=== PATIENT | male | born 2000 | race Caucasian/White ===

== ENCOUNTER 2023-11-15 14:44 | Emergency (ER) | payer OTHER, SELFPAY ==
[2023-11-15 14:48] VITALS: BP 157/99
--- NOTE | 2023-11-15 15:30 | ED.GENMED ---
History of Present Illness
General
Chief Complaint: Musculo-Skeletal Complaint
Source: patient
Time Seen by Provider: 11/15/23 15:04
Travel History
Have you had any contact with someone who has COVID-19?: No
Do you have any symptoms of coronavirus? Fever > 100 degrees, chills, cough, shortness of breath, sore throat, loss of taste or smell, muscle aches, or headache?: No
History of Present Illness
History of Present Illness:
23-year-old male with no significant past medical history presenting emergency department for evaluation after injuring his left shoulder while bench pressing earlier today. Patient states that he is having difficulty with range of motion of his
left shoulder since injuring as well as states he feels that he is not able to fully extend his left arm secondary to the pain. Denies any previous history of injury or surgery although notes that while lifting weights over the last few years he
has often times felt pain over the anterior portion of his deltoid/shoulder but states never had this evaluated. No other injuries or concerns.
Past History
Past History
ED Past Medical History: None
ED Past Surgical History: None
Social History
Tobacco: Non-smoker
Alcohol: Occasional
Drug: None
Personal: Single
Living: with family
Employment: Student
Review of Systems
Review of Systems
All Other Systems: ROS reviewed and negative except as documented in HPI and ROS
Phy Exam
Physical Exam
Physical Exam:
GENERAL: Alert , in no apparent distress
EYE: conjunctiva clear
Head: Normocephalic atraumatic
NECK: Supple,
ENT: mmm.
LUNGS: no acute respiratory distress
NEUROLOGICAL: Alert and oriented
SKIN: Warm and dry, skin intact.
MUSCULOSKELETAL: Left upper extremity: No obvious deformity, erythema, edema, ecchymosis, abrasions or lacerations. There is tenderness over the anterior deltoid as well as down towards the bicipital groove. Range of motion limited secondary to
pain. Easily palpable radial pulse. Cap refill less than 2 seconds and sensation is grossly intact to light touch. Remainder of extremity is within normal limits and without sign of trauma.
PSYCH: Normal and appropriate interaction.
Scores
Heart Failure Risk
Heart Failure Risk Score: Not Applicable
Heart Score for Chest Pain Patients
STEMI patient?: Not applicable
Withdrawal Assessment of Alcohol
Withdrawal Assessment Completed?: Not applicable
Course
Orders/Labs/Results
Orders:
Orders
11/15/23 14:54
Shoulder, Left, Trauma CR [CR Shoulder, Trauma - Left] Urgent
Comment:
Reason For Exam: injury
11/15/23 15:17
Iohexol [Omnipaque] See Protocol PO NOW STA
11/15/23 15:19
Sling Left-Treatment ONCE
11/15/23 15:17
11/15/23 15:17
Vital Signs
Initial and Last Documented VS:
Initial Vital Signs
Temp Pulse Resp BP Pulse Ox
97.6 F 66 16 157/99 98
11/15/23 14:48 11/15/23 14:48 11/15/23 14:48 11/15/23 14:48 11/15/23 14:48
Last Documented Vital Signs
Temp Pulse Resp BP Pulse Ox
97.6 F 66 16 157/99 98
11/15/23 14:48 11/15/23 14:48 11/15/23 14:48 11/15/23 14:48 11/15/23 14:48
MDM/Problems Addressed
Differential Diagnosis Includes:
Rotator cuff injury, biceps tendon injury, dislocation, deltoid injury, less concern for fracture
MDM/Problems Addressed:
23-year-old male present emergency department for evaluation of left shoulder injury while bench pressing. Based off the mechanism I do have less concern for biceps injury however patient is fairly tender over the bicipital groove and anterior
deltoid. X-ray had been ordered from triage which was negative for any fracture or dislocation. Will place in a sling. Suspect muscular versus tendon injury. Information for orthopedics provided. Continue NSAIDs/Tylenol as needed for pain as
well as ice and elevation. Patient will contact Ortho for follow-up
*Radiology
Radiology exam reviewed: preliminary read by ED provider (No fracture or dislocation)
*Pulse Oximetry
Patient hypoxic: no
*Critical Care Note
Total Time (30-74mins, 75-104mins- exclusive of procedures): Not Applicable
ED Attending Note
-
Portions of this chart may have been created with voice recognition software.� Occasional wrong word or��sound alike� substitutions may have occurred due to the inherent limitations of voice recognition software.
Discharge Plan
Departure
Patient Disposition: Home (Routine Discharge)
Date of Disposition: 11/15/23
Time of Disposition: 15:30
Patient with high blood pressure during this ER visit?: Yes
Discharge Problem:
Left shoulder pain
Instructions: Shoulder Pain (DC)
Referrals:
Adrian Munoz PA-C [Family Provider] -
Krishan Aldridge MD [Active] - (Ortho - Call for appointment)
Interventions
Interventions:
*Risk Screen - Suicide Last Done: 11/15/23 14:48
*General Assessment Last Done: 11/15/23 14:48
*Neglect/Abuse Screening Last Done: 11/15/23 14:48
*Nursing Disposition Last Done: 11/15/23 15:41
ED-Musculoskeletal Assessment Last Done: 11/15/23 15:06
Discharge Date and Time
Discharge Date/Time: 11/15/23 15:41
Print Language: CANADIAN
== END 2023-11-15 15:41 | disposition home or self-care (01) ==
LOC: EMR 14:44
PROVIDERS: EMERGENCY PHYSICIAN Emergency Medicine; FAMILY PHYSICIAN Physician Assistant Medical
DX: M25.512 Pain in left shoulder (principal)
CPT/HCPCS: 99283; 73030